=== PATIENT | female | born 2000 | race Caucasian/White ===

== ENCOUNTER 2020-05-28 21:02 | Emergency (ER) | payer OTHER, SELFPAY ==
[2020-05-28 21:03] VITALS: BP 109/72; PULSE 112; RESP 16; TEMP 36.4; O2SAT 97; BMI 23.3
--- NOTE | 2020-05-28 21:16 | ED.VIS.GEN ---
History of Present Illness Chief Complaint: Headache Narrative: Patient is a 20-year-old female who presents with a headache. Her headache began about a week and a half ago and gradually worsened over the course of 1 week. Her pain is occipital and down the sides of her neck. She has tried an omof-hka-rysukmn migraine medication and ibuprofen at home with little relief. She does complain of mild light sensitivity. No fevers nausea vomiting. No visual changes. No speech difficulty. No numbness tingling or weakness. She has a prior history of less severe but otherwise similar headaches. Past Medical History - Allergies and Home Meds Allergies/Adverse Reactions: Allergies No Known Allergies Allergy (Verified 05/28/20 21:04) Primary Care Physician: NOT,DEFINED [Primary Care Provider] - Past Medical History: - - Depression and anxiety Smoking Status: Unknown if ever smoked Review of Systems All systems negative except as indicated General: Denies: Fever Eyes: Denies: Visual changes - bilaterally ENT: Denies: Bilateral ear pain Cardiovascular: Denies: Chest pain Respiratory: Denies: Dyspnea Gastrointestinal: Denies: Nausea, Vomiting Musculoskeletal: Reports: Neck pain. Denies: Myalgias, Arthralgias Skin: Denies: Rash Neurological: Reports: Headache Allergy: Denies: Uticaria Physical Exam Vital Signs/Narrative: Vital Signs Temp Pulse Resp BP Pulse Ox 05/28/20 21:03 97.6 F L 112 H 16 109/72 97 Inital Vital Signs reviewed: Yes General: Well nourished, Well developed Head: Normocephalic Eyes: Perrl, EOMI ENT: Moist mucous membranes Neck: Supple, - - Patient does have some tenderness along the paraspinal musculature of the neck, no midline tenderness, no nuchal rigidity or meningismus Cardiovascular: Regular rhythm, Tachycardia Respiratory: No distress, CTA bilaterally Abdomen: Soft, Nontender Extremities: Nontender Skin: Normal color Neurological: Alert, - - No focal or lateralizing neurological deficits no ataxia normal strength normal sensation Psychological: Normal affect Diagnostic/Tx/Re-eval - Medical Decision Making Patient was treated with IV fluids, Compazine, Benadryl, Toradol. She has had significant relief on reevaluation. Patient will be discharged. She was advised to follow-up as an outpatient return for new worsening or recurrent symptoms. ED Disposition - Plan for ED Patient: Disposition: Home or Assisted Living Diagnosis: Headache Instructions: ED Headache Unspecified Referrals: NOT,DEFINED [Primary Care Provider] -
[2020-05-28] MEDS: Ketorolac 30 MG/ML Syringe IV (21:32)
[2020-05-28] MEDS: 0.9% Normal Saline 1,000 ML 999 ML IV (21:32)
[2020-05-28] MEDS: proCHLORPERazine 10 MG/2 ML Vial IV (21:33)
[2020-05-28] MEDS: DiphenhydrAMINE 50 MG/ML Syringe 25 MG IV (21:33)
[2020-05-28 22:27] VITALS: BP 105/77; PULSE 89; RESP 14; O2SAT 99
== END 2020-05-28 22:28 | disposition home or self-care (01) ==
PROVIDERS: Emergency Provider Emergency Medicine
DX: R51.9 Headache, unspecified (principal); M54.2 Cervicalgia; F32.9 Major depressive disorder, single episode, unspecified; F41.9 Anxiety disorder, unspecified
CPT/HCPCS: 96361; 96374; 96375; 99284; J7030; A4216

== ENCOUNTER → 2021-02-19 13:09 | Outpatient (CLI) | payer OTHER, MEDICAID, SELFPAY ==
[2021-02-19 14:03] LABS: Color, Urine Straw (Yellow); Glucose, Dipstick Normal (Normal); Ketone-Dipstick Negative (Negative); Leukocyte Esterase-Dipstick 100 /ul (Negative); Nitrite-Dipstick Positive (Negative); Occult Blood-Urine 10 /ul (Negative); Protein-Dipstick Negative (Negative); Specific Gravity, Urine 1.015 (1.002-1.030); Urine Bilirubin Dipstick Negative (Negative); Urine Clarity Clear (Clear); Urine Urobilinogen Normal (Normal); Urine pH 6.5 (5.0 - 8.0)
[2021-02-19 14:07] LABS: Absolute Lymphocyte Count 1.27 X10^3/uL (0.83-4.51); Absolute Neutrophil Count 4.4 X10^3/uL (2.0-7.7); Basophil# 0.05 X10^3/uL; Basophil% 0.8 % (0-1); Eosinophil# 0.06 X10^3/uL; Hematocrit 36.9 % (37-47); Hemoglobin 12.3 g/dL (12.0-15.0); Lymphocyte # 1.27 X10^3/ul (0.83-4.51); Lymphocyte % 20.4 % (19-41); Mean Corp Hgb Conc 33.3 g/dL (32-36); Mean Corpuscular Hgb 28.6 pg (27.0-32.0); Mean Corpuscular Volume 85.8 fL (81-99); Mean Platelet Vol. 11.4 fl (6.2-12.0); Monocyte# 0.42 X10^3/uL; Monocyte% 6.7 % (0-10); NRBC Flagged by Analyzer 0 % (0-5); Neutrophil # 4.42 X10^3/uL (2.7-7.7); Neutrophil % 70.8 % (47-70); Platelet Count 211 K/mm3 (150-450); RBC Distribution Width CV 12.7 % (11.6-14.6); RBC Distribution Width SD 39.3 fl (35.1-43.9); White Blood Count 6.2 K/mm3 (4.4-11.0)
[2021-02-19 14:25] LABS: Amphetamine Urine VISTA NEGATIVE (<1000 ng/mL); Barbiturate Urine VISTA NEGATIVE (< 200 ng/mL); Benzodiazepine Urine VISTA NEGATIVE (< 200 ng/mL); Cocaine Urine VISTA NEGATIVE (< 300 ng/mL); Ecstacy Urine VISTA NEGATIVE (< 500 ng/mL); Methadone Urine VISTA NEGATIVE (< 300 ng/mL); PCP Urine VISTA NEGATIVE (< 25 ng/mL); THC Urine VISTA NEGATIVE (< 50 ng/mL); Vista UDS pH Range 6
[2021-02-19 14:38] LABS: Thyroid Stim Hormone (TSH) 0.52 uIU/mL (0.358-3.74)
[2021-02-19 15:19] LABS: HIV - WCH Non-Reactive (Nonreactive); Hepatitis B Surface Antigen Non-Reactive (Nonreactive); Hepatitis C Antibody Non-Reactive (Nonreactive); Rubella IgG Reactive (Nonreactive); Syphilis Antibodies Non-reactive
[2021-02-22 15:59] LABS: HPV APTIMA, High Risk Negative (Negative); HPV Reflexed? YES, CHARGE PATIENT
== END ==
PROVIDERS: Visit Provider Obstetrics & Gynecology
DX: Z34.81 Encounter for supervision of other normal pregnancy, first trimester (principal)
CPT/HCPCS: 36415; 80307; 81002; 84443; 85025; 86703; 86762; 86780; 86803; 87077; 87086; 87088; 87186; 87340; 87491; 87591; 87624; 88175; G0145

== ENCOUNTER 2021-03-03 14:51 | Emergency (ER) | payer OTHER, MEDICAID, SELFPAY ==
[2021-03-03 14:52] VITALS: BP 107/74; PULSE 113; RESP 6; TEMP 36.6; O2SAT 99; BMI 19.5
--- NOTE | 2021-03-03 15:07 | EX.ED.DYSGE1 ---
HPI History of Present Illness Chief Complaint: Nausea/Vomiting Informant: patient Onset/Context/Timing Onset: Weeks Context: Gradual Onset Current Severity: Moderate Maximum Severity: Moderate Narrative Narrative: Patient present secondary to nausea and vomiting during . Patient is presently 10 weeks with her first . She reports nausea and vomiting for the last week or so, worse of the past 2 days. She states she is feeling lightheaded and dizzy when she stands and wants to sleep all the time. She is presently on Phenergan for nausea and is on Keflex for UTI. She denies any abdominal cramping or spotting. No fever or chills. PFSH PFSH Medical History no medical history no medical history Home Medications cephalexin 500 mg PO BID 03/03/21 [History Last Taken Unknown] ondansetron 4 mg PO Q8H PRN #10 tab 03/03/21 [Rx Last Taken Unknown] potassium chloride 20 meq PO BID #6 tab 03/03/21 [Rx Last Taken Unknown] promethazine 12.5 mg PO Q8H PRN PRN 03/03/21 [History Last Taken Unknown] Allergy/AdvReac Type Severity Reaction Status Date / Time No Known Allergies Allergy Verified 03/03/21 14:54 Surgical History no surgical history Social History Smoking Status: Former smoker ROS ROS ED Constitutional Constitutional ED: Denies chills or fever(s) Eyes Eyes: Denies change in vision ENT ENT ED: Denies sore throat Cardiovascular Cardiovascular: Denies chest pain Respiratory/Chest Respiratory/Chest: Denies cough or dyspnea Gastrointestinal Gastrointestinal: Reports nausea and vomiting; Denies abdominal pain or diarrhea Genitourinary Genitourinary ED: Denies dysuria or urinary frequency Musculoskeletal Musculoskeletal: Denies back pain Integumentary Denies rash Neurologic Neurologic: Reports headache(s); Denies weakness Allergic/Immunologic Allergic/Immunologic ED: Denies urticaria EXAM Physical Exam Const Vital Signs: 03/03/21 14:52 Temperature 97.8 F Temperature Source Temporal Pulse Rate 113 H Respiratory Rate 6 L Blood Pressure 107/74 Blood Pressure Mean 85 Pulse Ox 99 Oxygen Delivery Method Room Air Positive well nourished and well developed General Appearance ED: well developed HEENT Reports normocephalic and head/scalp atraumatic Eyes PERRL and EOMs intact bilaterally Neck supple Chest Wall inspection of chest normal and palpation of chest normal Resp normal respiratory effort and clear to auscultation bilaterally Cardio regular rate and regular rhythm GI non-tender Auscultation: hypoactive bowel sounds Palpation: soft Extremity normal to inspection Neuro oriented x3 and no sensory deficits noted Sensorium / Orientation: alert Motor Exam: strength 5/5 throughout Psych mental status grossly normal Skin no rashes or lesions noted MDM MDM MDM Narrative Medical decision making narrative: Patient was given a liter IV fluids and IV Zofran. Lab work and urinalysis obtained. Lab Data Attestation: I reviewed the patient's lab results. Labs: Laboratory Results - last 24 hr 03/03/21 03/03/21 03/03/21 15:08 15:10 15:10 WBC 8.7 RBC 4.64 Hgb 13.5 Hct 39.4 MCV 84.9 MCH 29.1 MCHC 34.3 RDW Std Deviation 37.3 RDW Coeff of Leah 12.2 Plt Count 247 MPV 11.3 Immature Gran % (Auto) 0.600 Neut % (Auto) 79.4 H Lymph % (Auto) 13.7 L [place] % (Auto) 5.1 Eos % (Auto) 0.5 Baso % (Auto) 0.7 Absolute Neuts (auto) 6.9 Absolute Lymphs (auto) 1.19 Nucleated RBC % 0 Sodium 136 Potassium 3.1 L Chloride 104 Carbon Dioxide 24.0 Anion Gap 8 BUN 6 L Creatinine 0.53 L Estim Creat Clear Calc 128.65 Est GFR (MDRD) Af Amer 186 Est GFR (MDRD) Non-Af 154 BUN/Creatinine Ratio 11.3 Glucose 88 Calcium 9.4 Urine Color Yellow Urine Clarity Cloudy Urine pH 6.0 Ur Specific [place] 1.025 Urine Protein 30 H Urine Glucose (UA) Normal Urine Ketones 150 A* Urine Occult Blood 25 H Urine Nitrite Negative Urine Bilirubin Negative Urine Urobilinogen 1 H Ur Leukocyte Esterase 500 H Urine RBC 0 SEEN Urine WBC 25-50 SEEN Ur Squamous Epith Cells 5-10 SEEN Urine Bacteria 2+ Urine Mucus 1+ Treatment and Re-Evaluation Comments:: Urinalysis shows continued infection with 2+ bacteria and 25-50 whites. Potassium is low at 3.1. Remainder of labs unremarkable. Patient was given a dose of IV Rocephin and urine culture was sent. She is currently only taking her Keflex twice daily. I encouraged her to take this 4 times a day to treat an acute infection. At this time she is tolerating p.o. and feeling much improved. She will be given p.o. potassium replacement as well as a prescription for Zofran. Discharge Plan Triage Chief Complaint: Nausea/Vomiting ED Provider: Leidy Ordoñez Dx/Rx/DC Orders Clinical Impression: Vomiting, Hypokalemia, UTI (urinary tract infection) Instructions: ED Hypokalemia, ED CYSTITIS Female Adult, ED Vomiting (Adult) Prescriptions: New ondansetron 4 mg tablet,disintegrating 4 mg PO Q8H PRN (Reason: nausea and vomiting) Qty: 10 RF: 0 potassium chloride 20 mEq tablet extended release 20 meq PO BID Qty: 6 RF: 0 No Action cephalexin 500 mg capsule 500 mg PO BID RF: 0 promethazine 12.5 mg tablet 12.5 mg PO Q8H PRN PRN (Reason: Nausea And Vomiting) RF: 0 Primary Care Provider: Care Physician,No Primary Referrals: Bunny Ford MD [STAFF PHYSICIAN] - 3-5 Days if not improving Care Physician,No Primary [Primary Care Provider] - Disposition Disposition: Home, Self Care
[2021-03-03] MEDS: Ondansetron 4 MG/2 ML Vial IV (15:14)
[2021-03-03] MEDS: 0.9% Normal Saline 1,000 ML 1000 ML IV (15:14)
[2021-03-03 15:29] LABS: Red Blood Cells-Urine 0 SEEN /hpf (0-5)
[2021-03-03 15:30] LABS: Absolute Lymphocyte Count 1.19 X10^3/uL (0.83-4.51); Absolute Neutrophil Count 6.9 X10^3/uL (2.0-7.7); Basophil# 0.06 X10^3/uL; Basophil% 0.7 % (0-1); Eosinophil# 0.04 X10^3/uL; Eosinophils% 0.5 % (0-5); Hematocrit 39.4 % (37-47); Hemoglobin 13.5 g/dL (12.0-15.0); Lymphocyte # 1.19 X10^3/ul (0.83-4.51); Lymphocyte % 13.7 % (19-41); Mean Corp Hgb Conc 34.3 g/dL (32-36); Mean Corpuscular Hgb 29.1 pg (27.0-32.0); Mean Corpuscular Volume 84.9 fL (81-99); Mean Platelet Vol. 11.3 fl (6.2-12.0); Monocyte# 0.44 X10^3/uL; Monocyte% 5.1 % (0-10); NRBC Flagged by Analyzer 0 % (0-5); Neutrophil # 6.88 X10^3/uL (2.7-7.7); Neutrophil % 79.4 % (47-70); Platelet Count 247 K/mm3 (150-450); RBC Distribution Width CV 12.2 % (11.6-14.6); RBC Distribution Width SD 37.3 fl (35.1-43.9); Red Blood Count 4.64 M/mm3 (4.2-5.4); White Blood Count 8.7 K/mm3 (4.4-11.0)
[2021-03-03 15:32] LABS: Color, Urine Yellow (Yellow); Glucose, Dipstick Normal (Normal); Leukocyte Esterase-Dipstick 500 /ul (Negative); Nitrite-Dipstick Negative (Negative); Occult Blood-Urine 25 /ul (Negative); Protein-Dipstick 30 mg/dl (Negative); Specific Gravity, Urine 1.025 (1.002-1.030); Urine Bilirubin Dipstick Negative (Negative); Urine Clarity Cloudy (Clear); Urine Urobilinogen 1 mg/dl (Normal)
[2021-03-03 15:37] LABS: Ketone-Dipstick 150 mg/dl (Negative)
[2021-03-03 15:41] LABS: Bacteria 2+ /hpf (None Seen); Mucous, Urine 1+ /hpf (<or=2+); Squamous Epithelial Cells - UA 5-10 SEEN /hpf (5-10); White Blood Cells 25-50 SEEN /hpf (0-5)
[2021-03-03 15:49] LABS: Anion Gap 8 (5-15); BUN 6 mg/dL (7-18); BUN/Creat Ratio 11.3 RATIO (10-20); Calcium,Total 9.4 mg/dL (8.5-10.1); Chloride 104 mmol/L (98-107); Creatinine, Serum 0.53 mg/dL (0.55-1.02); EST Glomerular Filtration Rate 154 mL/min (>60); Est Glom Filt Rate - Afr Amer 186 mL/min (>60); Estimated Creatinine Clearance 128.65 ml/min; Glucose 88 mg/dL (74-106); Potassium 3.1 mmol/L (3.5-5.1); Sodium Level 136 mmol/L (136-145)
[2021-03-03] MEDS: 0.9% Normal Saline 1,000 ML 150 ML IV (16:19)
[2021-03-03] MEDS: Ceftriaxone 1 GM/50 ML BAG IV (16:19)
[2021-03-03 17:00] VITALS: BP 95/70; PULSE 70; RESP 16
[2021-03-03] MEDS: Potassium Chloride Oral Tablet 20 MEQ PO (17:27)
[2021-03-03 17:30] VITALS: RESP 15
== END 2021-03-03 17:30 | disposition home or self-care (01) ==
PROVIDERS: Emergency Provider Emergency Medicine
DX: O21.8 Other vomiting complicating pregnancy (principal); O99.281 Endocrine, nutritional and metabolic diseases complicating pregnancy, first trimester; E87.6 Hypokalemia; O23.41 Unspecified infection of urinary tract in pregnancy, first trimester; Z79.899 Other long term (current) drug therapy; Z87.891 Personal history of nicotine dependence; Z3A.10 10 weeks gestation of pregnancy
CPT/HCPCS: 80048; 81001; 85025; 87077; 87086; 87088; 87186; 96361; 96365; 96375; 99284; J7030; A4216; J2405

== ENCOUNTER 2021-07-08 13:42 | Emergency (ER) | payer OTHER, MEDICAID, SELFPAY ==
[2021-07-08 13:43] VITALS: BP 100/69; PULSE 108; RESP 16; TEMP 36.4; O2SAT 100; BMI 21.0
--- NOTE | 2021-07-08 14:18 | US_ITS ---
STUDY: RENAL ULTRASOUND - COMPLETE REASON FOR EXAM: Female, 21 years old. Right flank pain, 29 wks TECHNIQUE: Ultrasound evaluation of the kidneys was performed with real-time and static fitch-scale imaging. COMPARISON: None. FINDINGS: RIGHT KIDNEY: Normal location of the right kidney, which is normal in size. The right kidney measures 11.3 cm x 5.5 cm x 4.7 cm. There is a normal cortex of the right kidney. The renal cortex measures 1.2 cm. There is no right renal mass or cyst. There are no right renal calculi. There is no right hydronephrosis. DISTAL RIGHT URETER: There is non-visualization of the distal right ureter. There is no demonstrated right ureterovesical junction calculus. There is no demonstrated right ureteral jet. LEFT KIDNEY: Normal location of the left kidney, which is normal in size. The left kidney measures 9.8 cm x 4.8 cm x 5.6 cm. There is a normal cortex of the left kidney. The renal cortex measures 1 cm. There is a 9 mm x 8 mm x 8 mm cyst. There are no left renal calculi. There is no left hydronephrosis. DISTAL LEFT URETER: There is non-visualization of the distal left ureter. There is no demonstrated left ureterovesical junction calculus. There is no demonstrated left ureteral jet. BLADDER: The bladder is empty at the time of the examination. US/Kidney and Bladder IMPRESSION: 9 mm by 8mm by 8mm left renal cyst. No evidence of hydronephrosis. Electronically Signed: Alphonse Ivey MD at 15:32 EST ,
--- NOTE | 2021-07-08 14:19 | EKG12_ITS ---
Test Reason : CHEST Blood Pressure : / mmHG Vent. Rate : 105 BPM Atrial Rate : 105 BPM P-R Int : 130 ms QRS Dur : 062 ms QT Int : 342 ms P-R-T Axes : 012 007 003 degrees QTc Int : 452 ms Sinus tachycardia Nonspecific T wave abnormality Abnormal ECG No previous ECGs available Confirmed by CAROLINA HATFIELD, JHONY ([id number]), primer expeditor and drier OSMANY QUEZADA ([id number]) on 07/10/2021 1:33:25 PM Referred By: DORIS Confirmed By:JHONY FIGUEROA MD
--- NOTE | 2021-07-08 14:38 | EDS_ITS ---
HPI History of Present Illness Chief Complaint: General Illness Informant: patient Narrative Narrative: Patient is a 21-year-old female that is G1, P0 stating she is currently 7 months presenting with multiple complaints. Patient states she has had migraine headaches for the past week, sore throat for the past week, chest pain that started 1 hour prior to arrival and is still there as well as epigastric abdominal discomfort since arriving to the emergency room. She states that abdominal pain radiates to her right upper quadrant. This feels different than her acid reflux that she has had with her . She has been having body aches but denies any cough, fever, vomiting, rash or sick contacts. She is also had diarrhea for 3 days. Her last menstrual period was December 17. Her WINDOW MACHINE OPERATOR is Dr. Ford. She states she is due on September 25. Denies any abnormal urination or leakage of fluid/vaginal bleeding. She is still feeling the baby move. She took Tylenol 1 week ago when her symptoms started but since it did help she has not taken any since. No other complaints at this time. PFSH PFSH Medical History Anxiety Depression Non-smoker Home Medications promethazine 12.5 mg PO Q8H PRN PRN 03/03/21 [History Last Taken Unknown] cephalexin 500 mg PO Q8H #21 cap 07/08/21 [Rx Last Taken Unknown] fluoxetine 20 mg PO DAILY 07/08/21 [History Last Taken Unknown] Allergy/AdvReac Type Severity Reaction Status Date / Time No Known Allergies Allergy Verified 03/03/21 14:54 Social History Smoking Status: Former smoker ROS ROS ED Constitutional Constitutional ED: Reports other Details: Malaise ; Denies chills or fever(s) Eyes Eyes: Denies blurry vision or change in vision ENT ENT ED: Reports sore throat; Denies ear pain or rhinorrhea Cardiovascular Cardiovascular: Reports chest pain; Denies palpitations Respiratory/Chest Respiratory/Chest: Denies cough, dyspnea or sputum Gastrointestinal Gastrointestinal: Reports abdominal pain, diarrhea and nausea; Denies constipation, melena or vomiting Genitourinary Genitourinary ED: Reports other Details: ; Denies dysuria, hematuria or urinary frequency Musculoskeletal Musculoskeletal: Reports myalgias; Denies arthralgias Integumentary Denies rash Neurologic Neurologic: Reports headache(s); Denies paresthesias or weakness Psychiatric Psychiatric: Denies anxiety or depression EXAM Physical Exam Const Vital Signs: 07/08/21 13:43 07/08/21 13:53 Temperature 97.6 F L Temperature Source Temporal Pulse Rate 108 H Respiratory Rate 16 Respiratory Effort Normal Respiratory Pattern Normal Blood Pressure 100/69 Blood Pressure Mean 79 Pulse Ox 100 Oxygen Delivery Method Room Air Positive well nourished and well developed General Appearance ED: well developed and NAD HEENT Reports TM's clear and moist mucous membranes HEENT Narrative: Normal oropharynx Tympanic Membrane ED: Yes TM's clear Eyes PERRL and EOMs intact bilaterally Neck no lymphadenopathy and supple Neck Narrative: No meningeal signs Chest Wall inspection of chest normal Resp normal respiratory effort and clear to auscultation bilaterally Cardio regular rate, regular rhythm and no murmurs GI normal to inspection, nondistended, normoactive bowel sounds GI Narrative: Gravid abdomen with fundus at least 2 cm above the umbilicus Palpation: soft and tender epigastric; Negative for guarding or rebound tenderness present Back/Spine General Back: CVA tenderness right Extremity normal to inspection General Extremety ED: Negative for edema or tenderness General Extremity: Negative for edema Neuro oriented x3 Sensorium / Orientation: alert Motor Exam: Negative for general weakness Psych mental status grossly normal Skin no rashes or lesions noted and no wounds MDM MDM MDM Narrative Medical decision making narrative: Patient evaluated for multiple complaints including headache, sore throat, epigastric abdominal pain, chest pain while approximately 7 months . Normal heart tones. Patient is well- appearing on exam. Does have some mild right CVA tenderness. Patient's vital signs are significant for mild tachycardia with a heart rate of 108. Patient is given a liter of IV fluids in ER as well as Tylenol. Work-up shows white blood cell count 11.5 and likely physiologic anemia with a hemoglobin of 10.8. Urinalysis is concerning for UTI with 500 leukoesterase, 25-50 white blood cells and 2+ bacteria. Renal ultrasound obtained which does not show any hydronephrosis or stone. She does have an incidental finding of a left renal cyst which I think is unrelated to her presentation today. She has normal neurologic exam and no meningeal signs. Case is discussed with WINDOW MACHINE OPERATOR communication center operator, Dr. Moss, who is comfortable with starting the patient on antibiotics and follow-up in the office. Agrees that patient does not require further obstetric monitoring as patient is not having any decreased activity, vaginal bleeding or leakage of fluids. Her pain does not sound like contractions. Patient is given return precautions. She verbalizes agreement understand this plan. Urine culture is pending. Patient has normal blood pressure in the ER. Platelets are normal. 15 protein in the urine. I do not think patient has preeclampsia at this time. No signs of fluid overload or pulmonary edema. She is clear breath sounds I do not think a chest x-ray is indicated. I suspect her chest pain/epigastric pain is more related to acid reflux. Patient states she has been issues with acid reflux in the ER. Lab Data Attestation: I reviewed the patient's lab results. Labs: Laboratory Results - last 24 hr 07/08/21 07/08/21 07/08/21 14:41 14:50 14:50 WBC 11.5 H RBC 3.42 L Hgb 10.8 L Hct 30.9 L MCV 90.4 MCH 31.6 MCHC 35.0 RDW Std Deviation 38.3 RDW Coeff of Leah 11.6 Plt Count 165 MPV 11.0 Immature Gran % (Auto) 0.600 Neut % (Auto) 89.4 H Lymph % (Auto) 5.5 L [place] % (Auto) 4.2 Eos % (Auto) 0.0 Baso % (Auto) 0.3 Absolute Neuts (auto) 10.3 H Absolute Lymphs (auto) 0.63 L Nucleated RBC % 0 Sodium Potassium Chloride Carbon Dioxide Anion Gap BUN Creatinine Estim Creat Clear Calc Est GFR (MDRD) Af Amer Est GFR (MDRD) Non-Af BUN/Creatinine Ratio Glucose Calcium Total Bilirubin Cancelled Direct Bilirubin Cancelled AST Cancelled ALT Cancelled Alkaline Phosphatase Cancelled Troponin I High Sens Total Protein Cancelled Albumin Cancelled Globulin Cancelled Albumin/Globulin Ratio Lipase Urine Color Yellow Urine Clarity Sl. Cloudy Urine pH 5.0 Ur Specific [place] 1.025 Urine Protein 15 H Urine Glucose (UA) Normal Urine Ketones 5 H Urine Occult Blood 10 H Urine Nitrite Negative Urine Bilirubin Negative Urine Urobilinogen Normal Ur Leukocyte Esterase 500 H Urine RBC 0-5 SEEN Urine WBC 25-50 SEEN Ur Squamous Epith Cells 5-10 SEEN Urine Bacteria 2+ Urine Mucus 1+ 07/08/21 14:50 WBC RBC Hgb Hct MCV MCH MCHC RDW Std Deviation RDW Coeff of Leah Plt Count MPV Immature Gran % (Auto) Neut % (Auto) Lymph % (Auto) [place] % (Auto) Eos % (Auto) Baso % (Auto) Absolute Neuts (auto) Absolute Lymphs (auto) Nucleated RBC % Sodium 137 Potassium 3.3 L Chloride 108 H Carbon Dioxide 23.0 Anion Gap 6 BUN 5 L Creatinine 0.48 L Estim Creat Clear Calc 146.63 Est GFR (MDRD) Af Amer 208 Est GFR (MDRD) Non-Af 172 BUN/Creatinine Ratio 10.4 Glucose 70 L Calcium 8.7 Total Bilirubin 0.70 Direct Bilirubin 0.12 AST 22 ALT 23 Alkaline Phosphatase 102 Troponin I High Sens < 3 L Total Protein 6.5 Albumin 2.6 L Globulin 3.9 Albumin/Globulin Ratio 0.7 L Lipase 82 Urine Color Urine Clarity Urine pH Ur Specific [place] Urine Protein Urine Glucose (UA) Urine Ketones Urine Occult Blood Urine Nitrite Urine Bilirubin Urine Urobilinogen Ur Leukocyte Esterase Urine RBC Urine WBC Ur Squamous Epith Cells Urine Bacteria Urine Mucus Radiography Diagnostic Testing: Clinical Impression(s) from Imaging Studies Renal Ultrasound 07/08/21 14:18 IMPRESSION: 9 mm by 8mm by 8mm left renal cyst. No evidence of hydronephrosis. Electronically Signed: Alphonse Ivey MD at 15:32 EST , Rhythm Strip Rhythm Strip: Sinus Tach Rate: 105 Ectopy: None EKG Initial EKG: Attestation: I personally reviewed and interpreted this EKG as follows: Interpretation: Sinus Tachycardia Comments: Sinus tachycardia at a rate of 105 Normal axis Normal intervals Normal ST segments Discharge Plan Triage Chief Complaint: General Illness ED Provider: Sherry Roman Dx/Rx/DC Orders Clinical Impression: Headache, Chest pain, Infection of urinary tract in in third trimester, Cyst of left kidney Instructions: ED Pyelonephritis, Female (Adult) Prescriptions: New cephalexin 500 mg capsule 500 mg PO Q8H Qty: 21 RF: 0 No Action promethazine 12.5 mg tablet 12.5 mg PO Q8H PRN PRN (Reason: Nausea And Vomiting) RF: 0 fluoxetine 20 mg capsule 20 mg PO DAILY RF: 0 Primary Care Provider: Care Physician,No Primary Referrals: Bunny Ford MD [STAFF PHYSICIAN] - 3-5 Days Care Physician,No Primary [Primary Care Provider] - Activity Restrictions/Additional Instructions: Take Tylenol as needed for headache. Drink lots of fluids. You have been given antibiotic for urinary tract infection. You can take an dihy-hsi-allasvv antacid such as Tums or Pepcid to see if this helps with your chest/abdominal pain. Disposition Disposition: Home, Self Care
[2021-07-08] MEDS: Acetaminophen 325 MG Tablet 650 MG PO (14:47)
[2021-07-08] MEDS: 0.9% Normal Saline 1,000 ML 1000 ML IV (14:47)
[2021-07-08 14:52] LABS: Color, Urine Yellow (Yellow); Glucose, Dipstick Normal (Normal); Ketone-Dipstick 5 mg/dl (Negative); Leukocyte Esterase-Dipstick 500 /ul (Negative); Nitrite-Dipstick Negative (Negative); Occult Blood-Urine 10 /ul (Negative); Protein-Dipstick 15 mg/dl (Negative); Specific Gravity, Urine 1.025 (1.002-1.030); Urine Bilirubin Dipstick Negative (Negative); Urine Clarity Sl. Cloudy (Clear); Urine Urobilinogen Normal (Normal)
[2021-07-08 14:57] LABS: Absolute Lymphocyte Count 0.63 X10^3/uL (0.83-4.51); Absolute Neutrophil Count 10.3 X10^3/uL (2.0-7.7); Basophil# 0.03 X10^3/uL; Basophil% 0.3 % (0-1); Hematocrit 30.9 % (37-47); Hemoglobin 10.8 g/dL (12.0-15.0); Lymphocyte # 0.63 X10^3/ul (0.83-4.51); Lymphocyte % 5.5 % (19-41); Mean Corpuscular Hgb 31.6 pg (27.0-32.0); Mean Corpuscular Volume 90.4 fL (81-99); Monocyte# 0.48 X10^3/uL; Monocyte% 4.2 % (0-10); NRBC Flagged by Analyzer 0 % (0-5); Neutrophil # 10.31 X10^3/uL (2.7-7.7); Neutrophil % 89.4 % (47-70); Platelet Count 165 K/mm3 (150-450); RBC Distribution Width CV 11.6 % (11.6-14.6); RBC Distribution Width SD 38.3 fl (35.1-43.9); Red Blood Count 3.42 M/mm3 (4.2-5.4); White Blood Count 11.5 K/mm3 (4.4-11.0)
[2021-07-08 15:02] LABS: Bacteria 2+ /hpf (None Seen); Mucous, Urine 1+ /hpf (<or=2+); Red Blood Cells-Urine 0-5 SEEN /hpf (0-5); Squamous Epithelial Cells - UA 5-10 SEEN /hpf (5-10); White Blood Cells 25-50 SEEN /hpf (0-5)
[2021-07-08 15:15] LABS: ALB/GLOB Ratio 0.7 RATIO (0.9-2.4); AST(SGOT) 22 U/L (15-37); Alanine Aminotransfer ALT/SGPT 23 U/L (13-56); Albumin, Serum 2.6 g/dL (3.2-5.0); Alkaline Phosphatase 102 U/L (45-117); Anion Gap 6 (5-15); BUN 5 mg/dL (7-18); BUN/Creat Ratio 10.4 RATIO (10-20); Bilirubin, Direct 0.12 mg/dL (0.00-0.30); Calcium,Total 8.7 mg/dL (8.5-10.1); Chloride 108 mmol/L (98-107); Creatinine, Serum 0.48 mg/dL (0.55-1.02); EST Glomerular Filtration Rate 172 mL/min (>60); Est Glom Filt Rate - Afr Amer 208 mL/min (>60); Estimated Creatinine Clearance 146.63 ml/min; Globulin 3.9 g/dL (2.2-4.2); Glucose 70 mg/dL (74-106); Lipase 82 U/L (73-393); Potassium 3.3 mmol/L (3.5-5.1); Protein, Total 6.5 g/dL (6.4-8.2); Sodium Level 137 mmol/L (136-145); Troponin-I HS < 3 pg/mL (3.0-54.0)
--- NOTE | 2021-07-08 15:21 | CM.ED ---
SW Note Referral Source: Case Find Referral Reason: No Primary Care Physician (PCP) JANICE reviewed chart and noted that patient has no PCP. Patient said that she is seeing Dr. Ford from [facility] for her PCP. No other issues or concerns voiced at this time. SW remains available for any additional needs. Plan: Provided patient with PCP information Danna WINTERS
[2021-07-08] MEDS: Cephalexin 250 MG Capsule 500 MG PO (16:28)
[2021-07-08 16:30] VITALS: PULSE 106
== END 2021-07-08 16:31 | disposition home or self-care (01) ==
PROVIDERS: Emergency Provider Emergency Medicine; Visit Provider Emergency Medicine
DX: O23.43 Unspecified infection of urinary tract in pregnancy, third trimester (principal); O26.833 Pregnancy related renal disease, third trimester; N28.1 Cyst of kidney, acquired; O26.893 Other specified pregnancy related conditions, third trimester; K21.9 Gastro-esophageal reflux disease without esophagitis; R19.7 Diarrhea, unspecified; R51.9 Headache, unspecified; J02.9 Acute pharyngitis, unspecified; Z87.891 Personal history of nicotine dependence
CPT/HCPCS: 76770; 80053; 81001; 82248; 83690; 84484; 85025; 87086; 87088; 87804; 93005; 96360; 96361; 99284; J7030; A4216

== ENCOUNTER 2021-07-09 16:22 | Outpatient (CLI) | payer OTHER, MEDICAID, SELFPAY ==
[2021-07-09 17:27] LABS: Glucose Challenge Gest 1H 50g 116 mg/dL (70-140)
[2021-07-09 17:48] LABS: Hematocrit 30.5 % (37-47); Hemoglobin 10.8 g/dL (12.0-15.0); Mean Corp Hgb Conc 35.4 g/dL (32-36); Mean Corpuscular Hgb 31.8 pg (27.0-32.0); Mean Corpuscular Volume 89.7 fL (81-99); Mean Platelet Vol. 11.5 fl (6.2-12.0); Platelet Count 186 K/mm3 (150-450); RBC Distribution Width CV 11.8 % (11.6-14.6); RBC Distribution Width SD 38.5 fl (35.1-43.9); White Blood Count 7.2 K/mm3 (4.4-11.0)
== END 2021-07-09 23:59 | disposition home or self-care (01) ==
LOC: WOBLAB 16:23
PROVIDERS: Visit Provider Obstetrics & Gynecology
DX: Z34.83 Encounter for supervision of other normal pregnancy, third trimester (principal)
CPT/HCPCS: 36415; 82950; 85027

== ENCOUNTER → 2021-08-28 | Outpatient (CLI) | payer OTHER, MEDICAID, SELFPAY | END | disposition home or self-care (01) | LOC: LABSPEC 14:00 | PROVIDERS: Visit Provider Obstetrics & Gynecology | DX: Z36.85 Encounter for antenatal screening for Streptococcus B (principal) | CPT/HCPCS: 87081 ==

== ENCOUNTER 2021-09-12 06:42 | Inpatient (IN) | payer OTHER, MEDICAID, SELFPAY ==
[2021-09-12] VITALS (68 sets, daily range): BP systolic 107–136; BP diastolic 73–93; PULSE 54–106; TEMP 36.5–37.3; O2SAT 89–100; BMI 25.0
[2021-09-12 08:00] LABS: Absolute Lymphocyte Count 1.95 X10^3/uL (0.83-4.51); Basophil# 0.05 X10^3/uL; Basophil% 0.5 % (0-1); Eosinophil# 0.13 X10^3/uL; Eosinophils% 1.3 % (0-5); Hematocrit 31.3 % (37-47); Hemoglobin 10.4 g/dL (12.0-15.0); Lymphocyte # 1.95 X10^3/ul (0.83-4.51); Lymphocyte % 19.5 % (19-41); Mean Corp Hgb Conc 33.2 g/dL (32-36); Mean Corpuscular Hgb 28.7 pg (27.0-32.0); Mean Corpuscular Volume 86.2 fL (81-99); Mean Platelet Vol. 12.4 fl (6.2-12.0); Monocyte# 0.78 X10^3/uL; Monocyte% 7.8 % (0-10); NRBC Flagged by Analyzer 0 % (0-5); Neutrophil % 70.2 % (47-70); Platelet Count 187 K/mm3 (150-450); RBC Distribution Width CV 12.3 % (11.6-14.6); RBC Distribution Width SD 38.3 fl (35.1-43.9); Red Blood Count 3.63 M/mm3 (4.2-5.4)
[2021-09-12] MEDS: Lactated Ringers 1,000 ML 50 ML IV (08:00)
[2021-09-12] MEDS: miSOPROStol 25 MCG TABLET VAGINAL ×3 (08:09→16:55)
--- NOTE | 2021-09-12 08:24 | PCM.HP.BLA ---
History and Physical Date of Admission: 09/12/21 Chief complaint: Induction of labor IUGR History present illness: 21-year-old at 38 weeks and 3 days with DESTINI 09/23/2021 by LMP arrives for induction of labor with IUGR. Denies headache, visual changes, chest pain, shortness of breath, nausea, right upper quadrant pain. Patient states good movement. is complicated by IUGR Obstetric history: G1: Current Past medical history: Depression/anxiety Medications: vitamin, fluoxetine Past surgical history: [place] teeth extraction Allergies: No known drug allergies Social history: Denies smoking, alcohol use, drug use Family history: Denies history DVT or PE Review of systems: Besides above pertinent positives a full review of systems was performed and found to be negative Physical exam: Vital signs: Temperature 99 ?F General: Normal-appearing no acute distress HEENT: Normocephalic/atraumatic no cervical lymphadenopathy Cardiac/respiratory: No use accessory muscles, nonlabored breathing Abdomen: Soft, nontender, gravid Extremities: No peripheral edema normal peripheral pulses Psych: Normal affect normal demeanor nonpressured speech Labs: White blood cell count 10 hemoglobin 10.4 hematocrit 31.3% platelets 187. Assessment plan: 21-year-old at 38 weeks and 3 days for induction of labor for IUGR Admit labor and delivery CEFM GBS negative Cytotec induction Anesthesia to see
[2021-09-12] MEDS: Lactated Ringers 1,000 ML 200 ML IV ×2 (10:09→18:38)
[2021-09-12 10:28] LABS: Amphetamine Urine VISTA NEGATIVE (<1000 ng/mL); Barbiturate Urine VISTA NEGATIVE (< 200 ng/mL); Benzodiazepine Urine VISTA NEGATIVE (< 200 ng/mL); Cocaine Urine VISTA NEGATIVE (< 300 ng/mL); Ecstacy Urine VISTA NEGATIVE (< 500 ng/mL); Methadone Urine VISTA NEGATIVE (< 300 ng/mL); PCP Urine VISTA NEGATIVE (< 25 ng/mL); THC Urine VISTA NEGATIVE (< 50 ng/mL); Vista UDS pH Range 6
[2021-09-12 14:41] LABS: Chlamydia Trachomatis by PCR Negative (Negative); Neisserai gonorrhoeae by PCR Negative (Negative); Probe Check PASS; Sample Adequacy Control PASS; Specimen Processing Control PASS
[2021-09-12] MEDS: Acetaminophen 500 MG Tablet PO ×2 (15:42→22:17)
[2021-09-12] MEDS: Lactated Ringers 500 ML 999 ML IV ×2 (16:24→20:43)
--- NOTE | 2021-09-12 17:52 | PCM.PN.OB ---
Subjective Subjective pt with painful contractions Objective Data Objective Data Vital Signs: Vital Signs Temp Pulse BP Pulse Ox 97.9 F 76 114/74 99 09/12/21 17:43 09/12/21 17:50 09/12/21 17:50 09/12/21 17:48 Weight: 137 lb Body Mass Index (BMI) 25.0 Intake & Output: Intake and Output for Last 24 Hours 09/10/21 09/11/21 09/12/21 23:59 23:59 23:59 Intake Total 1215.0 / 1215.0 Balance 1215.0 / 1215.0 Lab / Micro Data Result Diagrams: 09/12/21 07:50 Labs: Laboratory Results - last 24 hr 09/12/21 07:50: WBC 10.0, RBC 3.63 L, Hgb 10.4 L, Hct 31.3 L, MCV 86.2, MCH 28.7, MCHC 33.2, RDW Std Deviation 38.3, RDW Coeff of Leah 12.3, Plt Count 187, MPV 12.4 H, Immature Gran % (Auto) 0.700, Neut % (Auto) 70.2 H, Lymph % (Auto) 19.5, [place] % (Auto) 7.8, Eos % (Auto) 1.3, Baso % (Auto) 0.5, Absolute Neuts (auto) 7.0, Absolute Lymphs (auto) 1.95, Nucleated RBC % 0 09/12/21 07:50: Blood Type B POSITIVE, Antibody Screen NEGATIVE 09/12/21 09:50: Chlam trachomat DNA PCR Cancelled 09/12/21 09:50: Urine Opiates Screen NEGATIVE, Urine Methadone Screen NEGATIVE, Ur Barbiturates Screen NEGATIVE, Ur Phencyclidine Scrn NEGATIVE, Ur Amphetamines Screen NEGATIVE, MDMA (Ecstasy) Screen NEGATIVE, U Benzodiazepines Scrn NEGATIVE, Urine Cocaine Screen NEGATIVE, U Cannabinoids Screen NEGATIVE, Ur Drug Screen Comment 09/12/21 09:50: Chlam trachomat DNA PCR Negative, N.gonorrhoeae DNA (PCR) Negative Micro: Microbiology 09/12/21 08:14 Nasal Secretion SARS-CoV-2 Antigen (Rapid) - Final
[2021-09-12] MEDS: fentaNYL-bupivacaine (epidural) 100 ML BAG EPIDURAL (18:07)
[2021-09-13] VITALS (27 sets, daily range): BP systolic 91–123; BP diastolic 56–90; PULSE 62–87; RESP 16–18; TEMP 35.9–36.9; O2SAT 95–100
[2021-09-13] MEDS: fentaNYL-bupivacaine (epidural) 100 ML BAG EPIDURAL (00:05)
[2021-09-13] MEDS: Ondansetron 4 MG/2 ML Vial IV (00:05)
[2021-09-13] MEDS: Lactated Ringers 1,000 ML 200 ML IV (00:05)
[2021-09-13] MEDS: Cefazolin 2 GM in 0.9% Normal Saline 100 ML IV (02:12)
--- NOTE | 2021-09-13 03:00 | EX.PCM.OBRPT ---
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 Normal uterus, tubes, and ovaries Consent: Patient arrived at term for induction of labor for IUGR via Cytotec. Patient cervix progressed to 1 cm/80-90/-3. Subsequently patient SROM and found to have prolonged deceleration to the 70s for approximately 6 minutes. OB stat was called at this time. Subsequently recovered in the operating room. Upon my arrival heart tone baseline within normal limits. Subsequently with recurrent late and prolonged decelerations that did recover back to baseline but ultimately with limited cervical dilation remote from delivery, IUGR and recurrent decelerations it was decided for primary section. Patient understands risk of the procedure include but are not limited to visceral or vascular injury, prolonged hospitalization, blood loss and need for transfusion, reoperation. Patient stated understanding and wished to proceed. All questions were answered and consent was signed. Procedure: Patient was brought back to the OR where epidural anesthesia was attempted with no pain relief on right side, 5 cc 1% lidocaine injected on patient's right portion of planned incision. Still with no relief. Decided for general anesthesia. 2 g of Ancef and 500 mg of azithromycin were given for infection prophylaxis. Patient was prepared and draped in a supine position with leftward tilt. A Pfannenstiel incision was made at the skin with a scalpel. The incision was carried down the fascia with a scalpel. The fascia was excised and extended laterally. Superiorly and inferiorly portions of the fascia were bluntly dissected from the rectus muscle and pyramidalis muscle. Rectus muscle was dissected at the midline down to the level of the pubic symphysis. Preperitoneal fatty tissue was noted and peritoneum was entered bluntly. Peritoneum was extended superiorly and inferiorly with good visualization of bladder. Bladder blade was inserted and vesicouterine peritoneum was identified. Low transverse hysterotomy was performed. Hand was brought into the incision and gentle fundal pressure was applied once the head was brought into the incision and the bladder blade was removed. Head and shoulders were delivered with ease. Cord was cut and clamped. Baby handed off to nursing. Placenta was delivered via cord traction and fundal massage. IV oxytocin was initiated in order to facilitate uterine contractions. Uterus was exteriorized and wiped out with dry laparotomy sponge in order to remove remaining placental membranes. Uterus was closed in a continuous running fashion. Good hemostasis was noted. Uterus was placed back into the abdominal cavity and good hemostasis was noted after [id number] sutures. Fascia was closed in a continuous running fashion with PDS suture. Subcutaneous irrigation was performed. Good hemostasis was noted. Skin was closed in a subcuticular fashion. All counts were correct x2. Patient tolerated the procedure well and was brought to recovery in stable condition.
[2021-09-13] MEDS: Oxytocin 30 units/NS 500 ml 30 UNITS/500 ML IV.SOLN 167 UNITS IV (03:30)
[2021-09-13] MEDS: Ketorolac 30 MG/ML Syringe IV ×4 (03:54→23:47)
[2021-09-13] MEDS: 0.9% Saline Lock 10 ML Syringe IV ×3 (03:54→17:52)
[2021-09-13] MEDS: HYDROmorphone 0.5 MG/0.5 ML SYRINGE IV (04:06)
[2021-09-13] MEDS: Acetaminophen 500 MG Tablet 1000 MG PO ×4 (04:30→23:47)
[2021-09-13] MEDS: Lactated Ringers 1,000 ML 100 ML IV (06:36)
[2021-09-13] MEDS: Senna/Docusate Sodium 1 Tablet PO (11:42)
[2021-09-13] MEDS: Enoxaparin 40 MG/0.4 ML Syringe SC (15:51)
[2021-09-14 05:11] VITALS: BP 97/53; PULSE 73; RESP 14; TEMP 36.3; O2SAT 98
[2021-09-14] MEDS: Acetaminophen 500 MG Tablet 1000 MG PO ×4 (05:19→23:53)
[2021-09-14 06:05] LABS: Hematocrit 23.1 % (37-47); Hemoglobin 7.5 g/dL (12.0-15.0); Mean Corp Hgb Conc 32.5 g/dL (32-36); Mean Corpuscular Hgb 28.8 pg (27.0-32.0); Mean Corpuscular Volume 88.8 fL (81-99); Mean Platelet Vol. 12.1 fl (6.2-12.0); Platelet Count 136 K/mm3 (150-450); RBC Distribution Width CV 12.6 % (11.6-14.6); RBC Distribution Width SD 40.5 fl (35.1-43.9); White Blood Count 8.8 K/mm3 (4.4-11.0)
[2021-09-14] MEDS: Ibuprofen 600 MG Tablet PO ×3 (06:19→20:18)
[2021-09-14 07:51] VITALS: BP 99/64; PULSE 70; RESP 16; TEMP 36.2; O2SAT 96
--- NOTE | 2021-09-14 08:59 | PCM.PN.OB ---
Subjective Subjective Reports she is sore this morning however painfulness improved from yesterday. OOB, ambulating and voididng without difficulty. Passing flatus and tolerates PO. Denies lightheadedness, shortness of breath or chest pain. Objective Data Objective Data Vital Signs: Vital Signs Temp Pulse Resp BP Pulse Ox 97.1 F L 70 16 99/64 96 09/14/21 07:51 09/14/21 07:51 09/14/21 07:51 09/14/21 07:51 09/14/21 07:51 Oxygen Delivery Method Room Air Weight: 62.142 kg Body Mass Index (BMI) 25.0 Intake & Output: Intake and Output for Last 24 Hours 09/12/21 09/13/21 09/14/21 23:59 23:59 23:59 Intake Total 2958.34 / 2958.34 3465 / 3465 Output Total 550 / 550 1000 / 1000 Balance 2408.34 / 2408.34 2465 / 2465 Lab / Micro Data Result Diagrams: 09/15/21 06:15 Labs: Laboratory Results - last 24 hr 09/14/21 05:55: WBC 8.8, RBC 2.60 L, Hgb 7.5 L, Hct 23.1 L, MCV 88.8, MCH 28.8, MCHC 32.5, RDW Std Deviation 40.5, RDW Coeff of Leah 12.6, Plt Count 136 L, MPV 12.1 H Micro: Microbiology 09/12/21 08:14 Nasal Secretion SARS-CoV-2 Antigen (Rapid) - Final Physical Exam Const alert, oriented x3 and no apparent distress Resp normal respiratory effort, normal air movement and clear to auscultation bilaterally Cardio regular rate, regular rhythm, S1 normal heart sound and S2 normal heart sound GI normal to inspection, nondistended, normoactive bowel sounds, soft to palpation, non-tender and non-distended GI Narrative: incisional dressing c/d/i Manual OB Exam: other lochia scant Uterus Palpation: uterus fundus firm Extremity no calf tenderness Assessment & Plan (1) delivery delivered: PLAN: POD#1 s/p PLTCS under general anesthesia -B positive -HBsAg neg, BCV Ab neg, HIV nrs, RPR nr, Rubella immune - -Routine postop care (2) Acute blood loss anemia: PLAN: Repeat CBC in am
[2021-09-14] MEDS: Enoxaparin 40 MG/0.4 ML Syringe SC (09:48)
[2021-09-14] MEDS: Senna/Docusate Sodium 1 Tablet PO (09:49)
[2021-09-14] MEDS: FLUoxetine 20 MG Capsule PO (09:49)
[2021-09-14 13:39] VITALS: BP 105/68; PULSE 84; RESP 16; TEMP 36.7
[2021-09-14 21:00] VITALS: BP 100/66; PULSE 74; RESP 16; TEMP 36.3; O2SAT 96
[2021-09-15] MEDS: Ibuprofen 600 MG Tablet PO ×2 (01:20→08:32)
[2021-09-15 01:21] VITALS: BP 103/67; PULSE 78; RESP 14; TEMP 36.9; O2SAT 98
[2021-09-15] MEDS: Acetaminophen 500 MG Tablet 1000 MG PO (06:09)
[2021-09-15 06:23] LABS: Hematocrit 21.5 % (37-47); Hemoglobin 6.9 g/dL (12.0-15.0); Mean Corp Hgb Conc 32.1 g/dL (32-36); Mean Corpuscular Hgb 28.2 pg (27.0-32.0); Mean Corpuscular Volume 87.8 fL (81-99); Mean Platelet Vol. 11.5 fl (6.2-12.0); Platelet Count 154 K/mm3 (150-450); RBC Distribution Width CV 12.7 % (11.6-14.6); RBC Distribution Width SD 40.5 fl (35.1-43.9); Red Blood Count 2.45 M/mm3 (4.2-5.4); White Blood Count 9.7 K/mm3 (4.4-11.0)
--- NOTE | 2021-09-15 06:58 | PCM.PN.OB ---
Subjective Subjective Doing well this AM. Denies chest pain, shortness of breath, lightheadedness, dizziness, nausea or vomiting, abdominal pain or heart racing or palpitations. Her pain is well controlled with ibuprofen. She is continues to ambulate without difficulty. She is voiding, passing flatus and had a bowel movement yesterday. Objective Data Objective Data Vital Signs: Vital Signs Temp Pulse Resp BP Pulse Ox 98.5 F 78 14 103/67 98 09/15/21 01:21 09/15/21 01:21 09/15/21 01:21 09/15/21 01:21 09/15/21 01:21 Oxygen Delivery Method Room Air Weight: 62.142 kg Body Mass Index (BMI) 25.0 Intake & Output: Intake and Output for Last 24 Hours 09/13/21 09/14/21 09/15/21 23:59 23:59 23:59 Intake Total 3465 / 3465 Output Total 1000 / 1000 Balance 2465 / 2465 Lab / Micro Data Result Diagrams: 09/15/21 06:15 Labs: Laboratory Results - last 24 hr 09/15/21 06:15: WBC 9.7, RBC 2.45 L, Hgb 6.9 L, Hct 21.5 L, MCV 87.8, MCH 28.2, MCHC 32.1, RDW Std Deviation 40.5, RDW Coeff of Laeh 12.7, Plt Count 154, MPV 11.5 Micro: Microbiology 09/12/21 08:14 Nasal Secretion SARS-CoV-2 Antigen (Rapid) - Final Physical Exam Const alert, oriented x3 and no apparent distress Resp normal respiratory effort, normal air movement and clear to auscultation bilaterally Cardio regular rate, regular rhythm, S1 normal heart sound and S2 normal heart sound GI normal to inspection, nondistended, normoactive bowel sounds, soft to palpation, non-tender and non-distended GI Narrative: dressing c/d/i Manual OB Exam: other lochia scant Uterus Palpation: uterus fundus firm Extremity no calf tenderness and no pedal edema Assessment & Plan (1) Acute blood loss anemia: PLAN: H/H stable 6.9/21.5 Patient asymptomatic Fe supplementation (2) delivery delivered: COMMENT: 09/13/21, general anesthesia PLAN: POD#2 -B positive -HBsAg neg, BCV Ab neg, HIV nrs, RPR nr, Rubella immune - -Routine postop care -d/c home today
--- NOTE | 2021-09-15 07:07 | PCM.DC ---
Discharge Instructions Diet Discharge Diet: No restrictions Activity Discharge Activity: Return to Normal Activity and May Shower May resume sexual activity in: 4-6 weeks Lifting Restrictions: 10 lb Dressing / Incision Call your doctor if you observe: Fever of 101 or Higher, Inability to urinate, Using more than 1 pad per hour, Shortness of breath, Dizziness, Fainting spells, Chest pain, Increased palpitations (irregular heartbeat) (or fast heartbeat), Calf discomfort, Uncontrolled pain and - (Persistent or severe headache) Suture Line Care: Avoid Pulling/Pushing Remove Dressing in: 4 days Cleanse incision/area with: Soap & Water Follow Up Care Please Follow Up With: Ozzy Moss MD When: 2 weeks for postop visit 6 weeks for visit Test Results: Test results from this visit will be discussed in further detail at your follow-up appointment, if applicable. Discharge Plan Admission Admit Date/Time: 09/12/21 06:42 Primary Reason for Your Visit: delivery Attending Provider: Ozzy Moss Primary Care Provider: Care Physician,Candida Primary Instructions Patient Instructions: Anemia Discharge Orders/Prescriptions Prescriptions: New ibuprofen 600 mg Tablet 800 mg PO Q6H PRN (Reason: Pain) Qty: 30 RF: 0 ferrous sulfate 325 mg (65 mg iron) tablet 325 mg PO BID Qty: 60 RF: 1 docusate sodium [Colace] 100 mg capsule 100 mg PO BID PRN (Reason: constipation) Qty: 60 RF: 0 Continued fluoxetine 20 mg capsule 20 mg PO DAILY RF: 0 1 gummy PO/SL DAILY RF: 0 Discontinued promethazine 12.5 mg tablet 12.5 mg PO Q8H PRN PRN (Reason: Nausea And Vomiting) RF: 0 cephalexin 500 mg capsule 500 mg PO Q8H RF: 0 Referrals / Follow Up: Care Physician,No Primary [Primary Care Provider] - Disposition Disposition (needs filled in before D/C Order can be placed): Home, Self Care
--- NOTE | 2021-09-15 07:09 | PCM.DC.SUM ---
Providers Date of Admission: 09/12/21 Primary Care Physician: No Primary Care Phys Reason For Visit: C SECTION Diagnosis Discharge Diagnosis (1) Acute blood loss anemia: Status: Acute Code(s): D62 - Acute posthemorrhagic anemia (2) delivery delivered: Status: Acute Code(s): O82 - Encounter for delivery without indication Medications at Discharge Home Medications fluoxetine 20 mg PO DAILY 07/08/21 1 gummy PO/SL DAILY 09/12/21 docusate sodium [Colace] 100 mg PO BID PRN #60 cap 09/15/21 ferrous sulfate 325 mg PO BID #60 tab 09/15/21 ibuprofen 800 mg PO Q6H PRN #30 tab 09/15/21 Hospital Course Operations section Procedures None Summary of Care Provided Hospital Course: 21yo G1 admitted at 38w3d gestation for scheduled induction of labor for IUGR. There was intolerance of labor and she underwent an emergent section under general anesthesia after receiving misoprotol, remote from vaginal delivery. Her Hgb postoperative nadired to 6.9. She was otherwise asymptomatic, tolerating PO, ambulating and toileting without difficulty and vitals remained normal. She was discharged to home on postoperative day #2. Weight / BMI Weight Weight: 62.142 kg Body Mass Index (BMI) 25.0 ABG / Lab / Microbiology Data Result Diagrams: 09/15/21 06:15 Laboratory: Laboratory Results - last 24 hr 09/15/21 06:15: WBC 9.7, RBC 2.45 L, Hgb 6.9 L, Hct 21.5 L, MCV 87.8, MCH 28.2, MCHC 32.1, RDW Std Deviation 40.5, RDW Coeff of Leah 12.7, Plt Count 154, MPV 11.5 Microbiology: Microbiology 09/12/21 08:14 Nasal Secretion SARS-CoV-2 Antigen (Rapid) - Final D/C Instructions Discharge Diet: No restrictions May resume sexual activity in: 4-6 weeks Call your doctor if you observe: Fever of 101 or Higher, Inability to urinate, Using more than 1 pad per hour, Shortness of breath, Dizziness, Fainting spells, Chest pain, Increased palpitations (irregular heartbeat) (or fast heartbeat), Calf discomfort, Uncontrolled pain and - (Persistent or severe headache) Suture Line Care: Avoid Pulling/Pushing Cleanse incision/area with: Soap & Water Please Follow Up With: Ozzy Moss MD When: 2 weeks for postop visit 6 weeks for visit Meaningful Use Info Meaningful Use Diagnoses (Choose all that apply): None applicable Discharge Plan Admission Admit Date/Time: 09/12/21 06:42 Primary Reason for Your Visit: delivery Attending Provider: Ozzy Moss Primary Care Provider: Care Physician,No Primary Instructions Patient Instructions: Anemia Discharge Orders/Prescriptions Prescriptions: New ibuprofen 600 mg Tablet 800 mg PO Q6H PRN (Reason: Pain) Qty: 30 RF: 0 ferrous sulfate 325 mg (65 mg iron) tablet 325 mg PO BID Qty: 60 RF: 1 docusate sodium [Colace] 100 mg capsule 100 mg PO BID PRN (Reason: constipation) Qty: 60 RF: 0 Continued fluoxetine 20 mg capsule 20 mg PO DAILY RF: 0 1 gummy PO/SL DAILY RF: 0 Discontinued promethazine 12.5 mg tablet 12.5 mg PO Q8H PRN PRN (Reason: Nausea And Vomiting) RF: 0 cephalexin 500 mg capsule 500 mg PO Q8H RF: 0 Referrals / Follow Up: Care Physician,No Primary [Primary Care Provider] - Disposition Disposition (needs filled in before D/C Order can be placed): Home, Self Care
--- NOTE | 2021-09-15 07:09 | NURSING ---
dr nathalia barahona updated on pt hgB result of 6.9 with CBC this AM. no further orders at this time. pt asymptomatic. vitals stable. furnace charger aware, as well.
--- NOTE | 2021-09-15 07:57 | NURSING ---
Pt. states she is planning discharge today per Dr. Carole ZEPEDA. She states she will be living with her grandmother, Bhargavi, after discharge. Bhargavi in room and holding baby, agrees with pt.
[2021-09-15 08:30] VITALS: BP 102/72; PULSE 79; RESP 16; TEMP 36.6; O2SAT 99
[2021-09-15] MEDS: Senna/Docusate Sodium 1 Tablet PO (10:22)
[2021-09-15] MEDS: Enoxaparin 40 MG/0.4 ML Syringe SC (10:23)
[2021-09-15] MEDS: FLUoxetine 20 MG Capsule PO (10:44)
== END 2021-09-15 11:45 | disposition home or self-care (01) | DRG 787 ==
PROVIDERS: Obstetrics & Gynecology; Admitting Provider Obstetrics & Gynecology; Referring Provider Obstetrics & Gynecology; Visit Provider Obstetrics & Gynecology
DX: O36.5930 Maternal care for other known or suspected poor fetal growth, third trimester, not applicable or unspecified (principal); O99.03 Anemia complicating the puerperium; D62 Acute posthemorrhagic anemia; O76 Abnormality in fetal heart rate and rhythm complicating labor and delivery; Z20.822 Contact with and (suspected) exposure to COVID-19; Z37.0 Single live birth; Z3A.38 38 weeks gestation of pregnancy; Z87.891 Personal history of nicotine dependence
CPT/HCPCS: 59025; 59050; 80307; 85025; 85027; 86850; 86900; 86901; 87491; 87591; 87811; 99218; J7120; A4216; G0378; J2405

== ENCOUNTER → 2023-08-10 | Outpatient (CLI) | payer MEDICAID, SELFPAY ==
[2023-08-10 12:14] LABS: Erythrocyte Sedimentation Rate 16 mm/hr (0-30)
[2023-08-10 12:17] LABS: Absolute Lymphocyte Count 1.55 X10^3/uL (0.83-4.51); Absolute Neutrophil Count 5.4 X10^3/uL (2.0-7.7); Basophil# 0.07 X10^3/uL; Basophil% 0.9 % (0-1); Eosinophil# 0.13 X10^3/uL; Eosinophils% 1.7 % (0-5); Hematocrit 38.7 % (37-47); Lymphocyte # 1.55 X10^3/ul (0.83-4.51); Lymphocyte % 20.4 % (19-41); Mean Corpuscular Hgb 24.1 pg (27.0-32.0); Mean Corpuscular Volume 77.7 fL (81-99); Mean Platelet Vol. 10.6 fl (6.2-12.0); Monocyte# 0.45 X10^3/uL; Monocyte% 5.9 % (0-10); NRBC Flagged by Analyzer 0 % (0-5); Neutrophil # 5.36 X10^3/uL (2.7-7.7); Neutrophil % 70.7 % (47-70); Platelet Count 349 K/mm3 (150-450); RBC Distribution Width CV 14.8 % (11.6-14.6); RBC Distribution Width SD 41.6 fl (35.1-43.9); Red Blood Count 4.98 M/mm3 (4.2-5.4); White Blood Count 7.6 K/mm3 (4.4-11.0)
[2023-08-10 12:59] LABS: ALB/GLOB Ratio 0.9 RATIO (0.9-2.4); AST(SGOT) 27 U/L (15-37); Alanine Aminotransfer ALT/SGPT 28 U/L (13-56); Albumin, Serum 3.6 g/dL (3.2-5.0); Alkaline Phosphatase 101 U/L (45-117); Anion Gap 6 (5-15); BUN 8 mg/dL (7-18); BUN/Creat Ratio 11.6 RATIO (10-20); Calcium,Total 9.1 mg/dL (8.5-10.1); Chloride 109 mmol/L (98-107); Creatinine, Serum 0.69 mg/dL (0.55-1.02); EST Glomerular Filtration Rate 112 mL/min (>60); Est Glom Filt Rate - Afr Amer 136 mL/min (>60); Globulin 3.9 g/dL (2.2-4.2); Glucose 87 mg/dL (74-106); Protein, Total 7.5 g/dL (6.4-8.2); Rheumatoid Factor < 10.0 IU/mL (<15); Sodium Level 139 mmol/L (136-145); T4 Free Direct 1.02 ng/dL (0.76-1.46); Thyroid Stim Hormone (TSH) 0.96 uIU/mL (0.358-3.74)
[2023-08-11 13:08] LABS: ANTINUCLEAR ANTIBODIES DIRECT Positive (Negative); Anti-Centromere B Ab >8.0 AI (0.0-0.9); Anti-Chromatin 0.4 AI (0.0-0.9); Anti-Jo <0.2 AI (0.0-0.9); Anti-Scleroderma-70 AB <0.2 AI (0.0-0.9); Anti-dsDNA Ab 1 IU/mL (0-9); RNP Ab 4.5 AI (0.0-0.9); SJOGREN'S Anti-SS-A test < 0.2 AI (0.0-0.9); SJOGREN'S Anti-SS-B test < 0.2 AI (0.0-0.9); Smith Ab <0.2 AI (0.0-0.9)
== END | disposition home or self-care (01) ==
LOC: BIMLAB 11:18
PROVIDERS: PCP Internal Medicine; Visit Provider Internal Medicine
DX: M19.90 Unspecified osteoarthritis, unspecified site (principal); F41.9 Anxiety disorder, unspecified; F32.A Depression, unspecified
CPT/HCPCS: 36415; 80053; 84439; 84443; 85025; 85652; 86038; 86140; 86225; 86235; 86431

== ENCOUNTER → 2024-07-06 | Outpatient (CLI) | payer MEDICAID, SELFPAY ==
[2024-07-06 15:17] LABS: Absolute Lymphocyte Count 1.51 X10^3/uL (0.83-4.51); Absolute Neutrophil Count 4.9 X10^3/uL (2.0-7.7); Basophil# 0.06 X10^3/uL; Basophil% 0.9 % (0-1); Eosinophil# 0.09 X10^3/uL; Eosinophils% 1.3 % (0-5); Hematocrit 42.5 % (37-47); Hemoglobin 13.7 g/dL (12.0-15.0); Lymphocyte # 1.51 X10^3/ul (0.83-4.51); Lymphocyte % 21.6 % (19-41); Mean Corp Hgb Conc 32.2 g/dL (32-36); Mean Corpuscular Volume 83.8 fL (81-99); Mean Platelet Vol. 10.7 fl (6.2-12.0); Monocyte# 0.42 X10^3/uL; NRBC Flagged by Analyzer 0 % (0-5); Neutrophil # 4.89 X10^3/uL (2.7-7.7); Neutrophil % 69.9 % (47-70); Platelet Count 278 K/mm3 (150-450); RBC Distribution Width CV 14.3 % (11.6-14.6); Red Blood Count 5.07 M/mm3 (4.2-5.4)
[2024-07-06 15:39] LABS: ALB/GLOB Ratio 1.3 RATIO (0.9-2.4); AST(SGOT) 23 U/L (<=31); Alanine Aminotransfer ALT/SGPT 33 U/L (<=34); Albumin, Serum 4.4 g/dL (3.5-5.0); Alkaline Phosphatase 134 U/L (35-104); Anion Gap 12 (5-15); BUN 9 mg/dL (4-19); BUN/Creat Ratio 12.7 RATIO (10-20); Calcium,Total 9.8 mg/dL (7.6-11.0); Carbon Dioxide 22.6 mmol/L (21.0-32.0); Chloride 103 mmol/L (98-108); EST Glomerular Filtration Rate 124 (>60); Globulin 3.5 g/dL (2.2-4.2); Glucose 88 mg/dL (70-99); Protein, Total 7.9 g/dL (5.9-8.4); Sodium Level 138 mmol/L (133-145); Total Bilirubin 0.88 mg/dL (0.00-1.30)
[2024-07-06 15:44] LABS: hCG Titer Quant., Serum < 1 mIU/mL (<9 non-preg)
[2024-07-08 11:08] LABS: Insulin Level 19.9 uIU/mL (2.6-24.9)
== END | disposition home or self-care (01) ==
LOC: BIMLAB 12:27
PROVIDERS: Physician Assistant; PCP Internal Medicine; Referring Provider Internal Medicine; Visit Provider Internal Medicine
DX: E16.2 Hypoglycemia, unspecified (principal); R32 Unspecified urinary incontinence; R42 Dizziness and giddiness; Z86.2 Personal history of diseases of the blood and blood-forming organs and certain disorders involving the immune mechanism
CPT/HCPCS: 36415; 80053; 83525; 84443; 84681; 84702; 85025